=== PATIENT | female | born 1950 | race Hispanic/Latino ===

== ENCOUNTER → 2017-11-02 | Outpatient (CLI) | payer OTHER | END | disposition home or self-care (01) | LOC: OIH 14:04 | PROVIDERS: ATTEND Internal Medicine Cardiovascular Disease | DX: Z13.6 Encounter for screening for cardiovascular disorders (principal) | CPT/HCPCS: 75571 ==

== ENCOUNTER 2020-01-03 05:50 | Day surgery (SDC) | payer OTHER ==
[2020-01-01 11:22] LABS: BASOPHILS % (AUTO) 0.5 % (0.0-5.0); EOSINOPHILS % (AUTO) 1.1 % (0.0-8.0); HEMATOCRIT 41.8 % (36-48); LYMPHOCYTES % (AUTO) 24.6 % (21.0-51.0); MEAN CORPUSCULAR HEMOGLOBIN 31.2 pg (27.0-33.0); MEAN CORPUSCULAR HGB CONC 32.8 g/dL (32.0-36.0); MEAN CORPUSCULAR VOLUME 95.2 fL (79-99); NEUTROPHILS % (AUTO) 67.4 % (40.0-77.0); PLATELET COUNT (AUTO) 311 K/uL (130-400); RED BLOOD CELL COUNT(AUTO) 4.39 MIL/uL (4.00-5.50); RED CELL DISTRIBUTION WIDTH 12.8 % (11.0-15.5); WHITE BLOOD COUNT (AUTO) 8.2 K/uL (4.8-10.8)
[2020-01-01 11:30] LABS: CREATININE 0.9 mg/dL (0.5-1.5); POTASSIUM 4.7 mmol/L (3.5-5.1)
[2020-01-01 12:10] LABS: INR 1.01 (0.85-1.15); PARTIAL THROMBOPLASTIN TIME 28.9 SEC (26.3-35.5); PROTHROMBIN TIME 10.9 SEC (9.6-11.6)
[2020-01-01 15:41] VITALS: BP 149/65
[~2020-01-03] VITALS: Ht 157.5 cm; Wt 74.2 kg
[2020-01-03] VITALS (11 sets, daily range): BP systolic 114–143; BP diastolic 59–85
[~2020-01-03 05:50] MED LIST: APIX5TAB PO; CETI10CA5 PO; FAMO20TA8 PO
--- NOTE | 2020-01-03 06:15 | NUR ---
PREOP PT ARRIVED AMBULATORY IN NO DISTRESS. PT HERE FOR PERM PACEMAKER CHANGE OUT. PT ORIENTED TO CALL LIGHT AND ROOM. PT VOICED UNDERSTANDING. WILL CONTINUE TO MONITOR PT.
[2020-01-03] MEDS ORDERED: CEFAZOLIN SODIUM 1 GM VIAL ONE ×2 (07:19→10:22)
[2020-01-03] MEDS ORDERED: BUPIVACAINE/PF 0.25% 30ML VIAL IJ ONE (07:19)
[2020-01-03] MEDS ORDERED: MEPERIDINE-PF 25 MG/ML SYG ONE ×3 (07:19→08:05)
[2020-01-03] MEDS ORDERED: MIDAZOLAM HCL 1 MG/ML 2ML VIAL ONE ×3 (07:20→08:05)
[2020-01-03] MEDS ORDERED: LIDOCAINE HCL 1% MDV 50ML VIAL ONE (07:20)
[2020-01-03] MEDS ORDERED: SODIUM CHLORIDE 0.9% 1000ML 1,000 ML IV SCH (08:00)
[2020-01-03] MEDS ORDERED: OCTYL 2-CYANOACRYLATE 1 EACH TP ONE (08:21)
[2020-01-03] MEDS ORDERED: ACETAMINOPHEN-CODEINE 300/30MG TAB PO PRN ×2 (09:00)
[2020-01-03] MEDS ORDERED: ONDANSETRON HCL 4 MG/2 ML VIAL IV PRN (09:00)
--- NOTE | 2020-01-03 09:00 | NUR ---
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 patient did well and dual pacemaker change successful. pt received sedation and needs ancef 1 gm at 1400 before discharge
--- NOTE | 2020-01-03 09:25 | NUR ---
post cath procedure received pt post dual chamber pacemaker change out. pt has pressure dressing to left upper chest wall clean and dry. good capillary refill to left hand. will continue to monitor pt and apply ice pack
--- NOTE | 2020-01-03 09:40 | NUR ---
ICE PACK APPLIED ICE PACK TO LEFT UPPER CHEST WALL PER MD ORDERS
--- NOTE | 2020-01-03 12:15 | NUR ---
DIET LUNCH TRAY SERVED. MEAL PREPPED BY SHARIF BAJWA
[2020-01-03] MEDS ORDERED: CEFAZOLIN SODIUM 1 GM VIAL IVP SCH (14:00)
--- NOTE | 2020-01-03 14:00 | NUR ---
discharge pt and spouse given discharge instructions and script for doxycycline. no hematoma or bleeding noted to left chest wall. pt taken out via w/c in no distress by whitney mejia.
== END 2020-01-03 14:00 | disposition home or self-care (01) ==
LOC: DAH 05:50
PROVIDERS: ATTEND Internal Medicine Cardiovascular Disease
DX: Z45.010 Encounter for checking and testing of cardiac pacemaker pulse generator [battery] (principal); I49.5 Sick sinus syndrome; I48.0 Paroxysmal atrial fibrillation; Z88.8 Allergy status to other drugs, medicaments and biological substances; Z79.899 Other long term (current) drug therapy; Z79.02 Long term (current) use of antithrombotics/antiplatelets; Z98.890 Other specified postprocedural states; Z79.01 Long term (current) use of anticoagulants; Z83.3 Family history of diabetes mellitus; Z83.438 Family history of other disorder of lipoprotein metabolism and other lipidemia; Z82.49 Family history of ischemic heart disease and other diseases of the circulatory system
CPT/HCPCS: 33228; 36415; 80048; 85025; 85610; 85730; 93005; A4215; A4216; A4221; A4222; A4223 ×3; A4606; A4663; C1785; J0690 ×2; J2175 ×3; J2250 ×3; J3490 ×2; J7030 ×2; 99156; 99157

== ENCOUNTER → 2020-03-11 | Outpatient (CLI) | payer OTHER | END | disposition home or self-care (01) | LOC: SHCH 09:22 | PROVIDERS: ATTEND Internal Medicine Cardiovascular Disease | DX: R60.9 Edema, unspecified (principal) | CPT/HCPCS: 93970 ==

== ENCOUNTER → 2023-12-13 | Outpatient (CLI) | payer OTHER ==
[2023-12-06 13:07] LABS: ALBUMIN 3.8 g/dL (3.5-5.0); BILIRUBIN,TOTAL 0.5 mg/dL (0.2-1.0); CREATININE 0.9 mg/dL (0.5-1.0); POTASSIUM 4.5 mmol/L (3.5-5.1); TOTAL PROTEIN, SERUM 7.1 g/dL (6.0-8.3)
[~2023-12-13] MED LIST changes: +IOHEXOL 350 MG/ML 100ML INFUS..BTL IV ONE; +METOPROLOL TARTRATE 1 MG/ML 5ML VIAL IV ONE
== END | disposition home or self-care (01) ==
LOC: RAH 08:37
PROVIDERS: ATTEND Internal Medicine Cardiovascular Disease
DX: R07.9 Chest pain, unspecified (principal); M47.815 Spondylosis without myelopathy or radiculopathy, thoracolumbar region
CPT/HCPCS: 75574; J3490 ×2; Q9967; 36415; 80053